=== PATIENT | female | born 1990 | race Caucasian/White ===

== ENCOUNTER 2019-07-03 18:41 | Emergency (ER) | payer BC ==
[2019-07-03 18:54] VITALS: TEMP 97.9; BMI 22.1
[2019-07-03] MEDS ORDERED: ACETAMINOPHEN 1000 MG/100 ML VIAL (NON FORMULARY) IVPB ONE (19:56)
[2019-07-03] MEDS ORDERED: SODIUM CHLORIDE 1,000 ML IV STA (19:56)
[2019-07-03] MEDS ORDERED: MAG HYDROX/AL HYDROX/SIMETH 30 ML UNIT-DOSE CUP PO ONE (19:57)
[2019-07-03] MEDS ORDERED: ACETAMINOPHEN INJECTION 100 ML IVPB ONE (20:06)
[2019-07-03] MEDS ORDERED: MAG HYDROX/AL HYDROX/SIMETH 30 ML UNIT-DOSE CUP ONE (20:07)
[2019-07-03 20:21] LABS: BASO % 0.5 % (0-2.0); EOS % 0.6 % (0-4.5); HEMATOCRIT 36.7 % (32.4-45.2); HEMOGLOBIN 12.5 GM/dL (10.7-15.3); LYMPH % 23.4 % (8-40); MCH 31.8 pg (25.7-33.7); MEAN CELL VOLUME 93.5 fl (80-96); MEAN PLT VOLUME 7.6 fl (7.5-11.1); MONO % 8.5 % (3.8-10.2); PLATELET COUNT 337 K/MM3 (134-434); RBC 3.93 M/mm3 (3.60-5.2); RDW 13.8 % (11.6-15.6); WHITE BLOOD COUNT 6.5 K/mm3 (4.0-10.0)
[2019-07-03] MEDS ORDERED: morphine CARPU-JECT 4 MG/1 ML DISP.SYRIN IVPUSH ONE ×2 (20:42→21:56)
[2019-07-03] MEDS ORDERED: ONDANSETRON 4 MG/2 ML VIAL IVPUSH ONE (20:42)
[2019-07-03] MEDS ORDERED: morphine SULFATE 4 MG/ML VIAL ONE (20:50)
[2019-07-03] MEDS ORDERED: ONDANSETRON 4 MG/2 ML VIAL ONE (20:50)
[2019-07-03 20:52] LABS: ALBUMIN 3.9 g/dl (3.4-5.0); BILIRUBIN,TOTAL 0.4 mg/dL (0.2-1); BLOOD UREA NITROGEN 6.3 mg/dL (7-18); CALCIUM 8.9 mg/dL (8.5-10.1); CREATININE 0.6 mg/dL (0.55-1.3); POTASSIUM 3.8 mmol/L (3.5-5.1); TOT PROT 7.4 g/dl (6.4-8.2)
--- NOTE | 2019-07-03 20:53 | PDOC ---
History of Present Illness - General Chief Complaint: Pain, Acute Stated Complaint: ABD PAIN Time Seen by Provider: 07/03/19 19:44 History Source: Patient Exam Limitations: No Limitations Past History - Past Medical History Allergies/Adverse Reactions: Allergies Allergy/AdvReac Type Severity Reaction Status Date / Time No Known Allergies Allergy Verified 07/03/19 18:54 Home Medications: Ambulatory Orders Ranitidine HCl [Acid Control] 150 mg PO BID 07/03/19 Sucralfate Oral Suspension [Carafate *Oral Susp*] 1 gm PO QID 07/03/19 - Psycho Social/Smoking Cessation Hx Smoking History: Never smoked *Physical Exam - Vital Signs Last Vital Signs Temp Pulse Resp BP Pulse Ox 97.9 F 72 26 H 97/42 L 99 07/03/19 18:52 07/03/19 18:52 07/03/19 18:52 07/03/19 18:52 07/03/19 18:52 - Physical Exam General Appearance: Yes: Moderate Distress (due to pain) Respiratory/Chest: positive: Lungs Clear, Normal Breath Sounds. negative: Respiratory Distress Cardiovascular: positive: Regular Rhythm, Regular Rate, S1, S2. negative: Murmur Gastrointestinal/Abdominal: positive: Tender (mostly along epigastric/RUQ region , also tender along RLQ), Soft. negative: Distended, Guarding, Rebound Musculoskeletal: negative: CVA Tenderness Neurologic: positive: Alert ED Treatment Course - LABORATORY CBC & Chemistry Diagram: 07/03/19 20:10 07/03/19 20:10 - ADDITIONAL ORDERS Additional order review: Laboratory Results 07/03/19 20:10 Serum , Qual Negative 07/03/19 20:10 RBC 3.93 MCV 93.5 MCHC 34.0 RDW 13.8 MPV 7.6 Neutrophils % 67.0 Lymphocytes % 23.4 Monocytes % 8.5 Eosinophils % 0.6 Basophils % 0.5 - RADIOLOGY Radiology Studies Ordered: Category Date Time Status ABDOMEN US -LIMITED [US] Stat Ultrasound 07/03/19 19:57 Ordered - Medications Given in the ED: ED Medications Discontinued Medications Generic Name Dose Route Start Last Admin Trade Name Freq PRN Reason Stop Dose Admin Acetaminophen 1,000 mg 07/03/19 19:56 07/03/19 20:17 Ofirmev Injection - IVPB 07/03/19 19:57 1,000 mg ONCE ONE Administration Al Hydroxide/Mg Hydroxide 30 ml 07/03/19 19:57 07/03/19 20:18 Mylanta Oral Suspension - PO 07/03/19 19:58 30 ml ONCE ONE Administration Medical Decision Making - Medical Decision Making 28 y/o F with no sig pmh presents with nausea and sharp epigastric pain from last night; states pain feels like gas. Went to urgent care today where she had labs done which were normal and was given rx for Zantac. Patient took Zantac and felt slightly better but then the pain returned, worse than before. Pain is not associated with food intake. Denies having this type of pain before. Had 1 small episode of diarrhea while in ED. Denies fever, sob, cp, vomiting, urinary symptoms. Denies prior abdominal surgeries. Is social alcohol drinker. Denies drug use. Consider cholecystitis, pancreatitis, appendicitis Patient appears very uncomfortable Was initially given IV Tylenol and Maalox, but still in pain Labs sent and pending Plan: RUQ sono, morphine, zofran, reassess 07/03/19 20:50 Labs reviewed and unremarkable Pending results of RUQ sono 07/03/19 21:02 RUQ sono: FINDINGS: Liver: Mild hepatomegaly with steatosis. The liver measured approximately 17.4 cm.. Normal directional flow seen in the portal veins. Bile Ducts: Intrahepatic and extrahepatic bile ducts are not dilated. The common bile duct measures 0.4 cm. Gallbladder: No evidence of shadowing cholelithiasis, gallbladder wall thickening, or pericholecystic fluid. Negative sonographic Asekw's sign. Pancreas: The pancreatic head is unremarkable. Right Kidney: No pelvicaliceal dilatation. No stones RUQ sono negative Patient initially felt comfortable after getting Morphine, but now again, appears very uncomfortable Will get CT A/P to further assess cause of sxs 07/03/19 21:57 CT A/P results: IMPRESSION: 1. No evidence of appendicitis. 2. Findings which could be indicative of gastroenteritis. 3. Involuting cyst in the left ovary. Patient has been resting comfortably and appears better Stable for dc 07/04/19 01:30 Discharge - Discharge Information Problems reviewed: Yes Clinical Impression/Diagnosis: Gastroenteritis Condition: Improved Disposition: HOME - Admission No - Additional Discharge Information Prescription Drug Monitoring Program (I-STOP) results: I-STOP not reviewed - Follow up/Referral - Patient Discharge Instructions Patient Printed Discharge Instructions: DI for Viral Gastroenteritis -- Adult Additional Instructions: Thank you for choosing [facility]. It was a pleasure taking care of you. Recommend drinking at least 2-3L of water daily Eat light food like bananas, rice, applesauce, toast, plain yogurt (no flavorings). If dairy products upset the stomach, you may hold off. Follow-up with your doctor in 2 days Return to the Emergency Department if your symptoms worsen or persist, you have fever, severe abdominal pain, unable to keep down liquids or other concerning symptoms. - Post Discharge Activity
[2019-07-03] MEDS ORDERED: MORPHINE SULFATE 2 MG/ML VIAL ONE (22:09)
[2019-07-04 01:51] VITALS: BP 106/53; PULSE 74
== END 2019-07-04 01:45 | disposition home or self-care (01) ==
LOC: JER 18:41
PROC: 3E033NZ Introduction of Analgesics, Hypnotics, Sedatives into Peripheral Vein, Percutaneous Approach (ICD-10-PCS; principal; 2019-07-03)
PROC: 3E033GC Introduction of Other Therapeutic Substance into Peripheral Vein, Percutaneous Approach (ICD-10-PCS; 2019-07-03)
PROC: 3E033NZ Introduction of Analgesics, Hypnotics, Sedatives into Peripheral Vein, Percutaneous Approach (ICD-10-PCS; 2019-07-03)
DX: K52.9 Noninfective gastroenteritis and colitis, unspecified (principal)
CPT/HCPCS: 36415; 74177-TC; 76705-TC; 80053; 83690; 84703; 85025; 99283-25; J0131; J7030

== ENCOUNTER 2020-01-29 17:42 | Emergency (ER) | payer BC, OTHER ==
[2020-01-29 17:58] VITALS: BP 116/75; PULSE 65; BMI 35.1
[2020-01-29] MEDS ORDERED: ACETAMINOPHEN 500 MG TABLET (FP) PO ONE (18:14)
[2020-01-29] MEDS ORDERED: ACETAMINOPHEN 500 MG TABLET (FP) ONE (18:16)
[2020-01-29 18:55] LABS: URINE APPEARANCE CLEAR; URINE BILIRUBIN NEGATIVE (NEGATIVE); URINE COLOR YELLOW; URINE GLUCOSE (UA) NEGATIVE (NEGATIVE); URINE KETONE 3+ (NEGATIVE)
[2020-01-29 18:56] LABS: URINE LEUK ESTERASE NEGATIVE (NEGATIVE); URINE NITRITE NEGATIVE (NEGATIVE); URINE PROTEIN NEGATIVE (NEGATIVE); URINE UROBILINOGEN 0.2 mg/dL (0.2-1.0)
[2020-01-29 18:57] LABS: HCG,QUALITATIVE URINE Negative
[2020-01-29] MEDS ORDERED: CYCLOBENZAPRINE HCL 10 MG TABLET (FP) PO ONE (20:22)
[2020-01-29] MEDS ORDERED: KETOROLAC TROMETHAMINE 30 MG/1 ML VIAL IM ONE (20:22)
== END 2020-01-29 20:47 | disposition home or self-care (01) ==
LOC: JERFT 17:42
PROC: 3E023GC Introduction of Other Therapeutic Substance into Muscle, Percutaneous Approach (ICD-10-PCS; principal; 2020-01-29)
DX: G44.319 Acute post-traumatic headache, not intractable (principal); R07.9 Chest pain, unspecified; R10.31 Right lower quadrant pain; R10.32 Left lower quadrant pain; V87.2XXA Person injured in collision between car and pick-up truck or van (traffic), initial encounter
CPT/HCPCS: 70450-TC; 71250-TC; 72125-TC; 74176-TC; 81003; 84703; 99284-25

== ENCOUNTER 2020-11-25 23:35 | Emergency (ER) | payer BC, OTHER ==
[2020-11-26 00:37] VITALS: BP 133/83; PULSE 88; TEMP 98.2; BMI 23.0
[2020-11-26] MEDS ORDERED: ACETAMINOPHEN 325 MG TABLET (FP) PO ONE (01:18)
[2020-11-26] MEDS ORDERED: diphenhydrAMINE HCL 25 MG CAPSULE (FP) PO ONE ×2 (01:18→01:21)
[2020-11-26] MEDS ORDERED: FAMOTIDINE 10 MG TABLET PO ONE (01:18)
[2020-11-26] MEDS ORDERED: ACETAMINOPHEN 325 MG TABLET (FP) ONE (01:21)
[2020-11-26] MEDS ORDERED: FAMOTIDINE 20 MG TABLET ONE (01:21)
[2020-11-26] MEDS ORDERED: CLINDAMYCIN HCL 150 MG CAPSULE (FP) PO ONE (02:42)
[2020-11-26] MEDS ORDERED: CLINDAMYCIN HCL 150 MG CAPSULE (FP) ONE (02:44)
== END 2020-11-26 03:02 | disposition home or self-care (01) ==
LOC: JER 23:35
DX: R21 Rash and other nonspecific skin eruption (principal); L03.113 Cellulitis of right upper limb
CPT/HCPCS: 99284-25